=== PATIENT | female | born 1940 | race Caucasian/White ===

== ENCOUNTER 2017-01-30 08:49 | Day surgery (SDC) | payer MEDICARE, OTHER ==
[2017-01-30] VITALS (8 sets, daily range): BP systolic 122–150; BP diastolic 66–75; PULSE 69–85; RESP 16–18; TEMP 97.6–97.8; O2SAT 94–97
[~2017-01-30] VITALS: Ht 160 cm; Wt 53.0 kg
[~2017-01-30 08:49] MED LIST: ALPR0.5T3 PO; DOXY50 OR; METO25 PO; OMEG1CAP53 PO; OMEP20CA5 PO; PHEN12.5 PR; SIMV20 PO; SYNT25TA PO; TAMB50TA2 PO; ULTR50TA PO; VITA500S3 PO; [UNRECOGNIZED DRUG - REMARK]
[2017-01-30] MEDS ORDERED: SODIUM CHLORIDE 2 ML FLUSH PRN IV FLUSH (09:15)
[2017-01-30] MEDS ORDERED: SODIUM CHLOR 0.9% 1000 ML IV SCH (09:15)
[2017-01-30] MEDS ORDERED: LEVO75TA3 PO (09:22)
[2017-01-30] MEDS ORDERED: VITA500S3 SL (09:22)
[2017-01-30] MEDS ORDERED: ASPI81CH37 CHEW (09:22)
[2017-01-30] MEDS ORDERED: VITA2000 PO (09:22)
[2017-01-30] MEDS ORDERED: METO25TA3 PO (09:22)
[2017-01-30] MEDS ORDERED: TRAM50TA PO (09:22)
[2017-01-30] MEDS ORDERED: ADVA115A INH (09:22)
[2017-01-30] MEDS ORDERED: BUTATAB6 PO (09:22)
[2017-01-30] MEDS ORDERED: LORA1TAB12 PO (09:22)
[2017-01-30] MEDS ORDERED: ZOFR4TAB PO (09:22)
[2017-01-30] MEDS ORDERED: ALBU1AER5 INH (09:22)
[2017-01-30] MEDS ORDERED: FLEC1TAB8 PO (09:22)
[2017-01-30] MEDS ORDERED: OMEP40CA2 PO (09:22)
[2017-01-30 10:15] LABS: INTERNATIONAL NORMALIZED RATIO 0.9 RATIO; PROTHROMBIN TIME - PATIENT 10.1 SEC (9.8-11.6)
[2017-01-30 10:18] LABS: APTT (PATIENT) 25.2 SEC (24.3-30.1)
[2017-01-30] MEDS ORDERED: LIDOCAINE HCL 1% 20 ML VIAL ONE (10:33)
[2017-01-30] MEDS ORDERED: fentaNYL CITRATE 250 MCG/5 ML AMP ONE (10:43)
[2017-01-30] MEDS ORDERED: MIDAZOLAM HCL 2 MG/2 ML VIAL ONE (10:43)
--- NOTE | 2017-01-30 11:24 | PD.RAD ---
Post CT Procedure Prog Note Pre Procedure Diagnosis: (1) Lung cancer Post Procedure Diagnosis: (1) Lung cancer Procedure Date: Jan 30, 2017 Supervising Radiologist: Nathanael Joyce Anesthesia: Conscious Sedation Plan of Activity Patient to Unit: [facility] Patient Condition: Good Additional Comments: rul lung mass bx. two 20 guage See PACS Report for procedural detail/treatment Nathanael Joyce MD Jan 30, 2017 11:24
[2017-01-30] MEDS ORDERED: oxyCODONE/ACETAMINOPHEN 5 MG/325 MG TAB PO PRN (11:30)
--- NOTE | 2017-01-30 13:47 | RADRPT ---
EXAM DATE/TIME: 01/30/2017 10:58 [facility] COMPARISON: CT NEEDLE BIOPSY LUNG, RIGHT, November 26, 2013, 11:58. INDICATIONS : Right lung mass. SEDATION TIME: 30 minutes BIOPSY SITE: Right MEDICATION(S): 1.) 3 mg midazolam (Versed) IV 2.) 175 mcg fentanyl (Sublimaze) IV DEVICE(S): 1.) 20 gauge Temno core biopsy needle MEDICAL HISTORY : Diabetes mellitus type 2. Cardiovascular disease. Squamous cell carcinoma SURGICAL HISTORY : None. ENCOUNTER: Initial ACUITY: 1 day PAIN SCORE: 0/10 LOCATION: Right chest A total of two core specimen(s) were obtained and sent to the laboratory for pathologic evaluation. PROCEDURE: 1. CT guided lung biopsy. 2. Conscious sedation with continuous EKG and oximetry monitoring. 3. EKG and oximetry remained stable throughout the procedure. Prior to the procedure informed consent was obtained. Any appropriate prior imaging studies were rev iewed. Using automated exposure control and adjustment of the mA and/or kV according to patient size, radiation dose was kept as low as reasonably achievable to obtain optimal diagnostic quality images. DICOM format image data is available electronically for review and comparison. The site was prepped in a sterile fashion. Full sterile technique was used, including cap, mask, dale rile gloves and gown and a large sterile sheet. Hand hygiene and 2% chlorhexidine and/or betadine/al cohol prep was utilized per protocol for cutaneous antisepsis. The skin and subcutaneous tissues wer e infiltrated with local anesthetic solution. With CT guidance the previously identified target was localized. Biopsy was performed using the presc ribed needle as above. Adequate hemostasis was obtained with compression at the puncture site. Follow-up CT scan reveals no pneumothorax. Conscious sedation was performed with the prescribed dosages and duration as above in the presence of an independent trained radiology nurse to assist in the monitoring of the patient. EKG and oximetry remained stable throughout the procedure. The patient tolerated the procedure well and there were no complications. The patient was sent to Radiology Outpatient Unit in stable condition. CONCLUSION: Uncomplicated CT guided biopsy. Nathanael Joyce MD on January 30, 2017 at 13:43 Board Certified Radiologist. This report was verified electronically.
--- NOTE | 2017-01-30 14:46 | RADRPT ---
EXAM DATE/TIME: 01/30/2017 13:42 [facility] COMPARISON: CHEST EXPIRATION ONLY, June 24, 2014, 11:28. INDICATIONS : Post right lung biopsy. MEDICAL HISTORY : Diabetes mellitus type II. Cardiovascular disease. Squamous cell carcinoma SURGICAL HISTORY : infusaport ENCOUNTER: Subsequent ACUITY: 1 day PAIN SCORE: 0/10 LOCATION: Right chest FINDINGS: A single frontal expiratory view of the chest was performed. There is a stable right IJ [id number] . Postsurgical features in the right lung. No significant pneumothorax following right upper lobe jasson g mass biopsy. Biopsy opacity right upper lobe peripherally is noted. Additional pulmonary masses not ed on recent PET/CT not as well-demonstrated. The cardio-mediastinal contours and bronchopulmonary markings are unremarkable for an expiratory exam . Osseous structures are intact. CONCLUSION: 1. No significant pneumothorax status post right upper lobe lung mass biopsy. Nathanael Joyce MD on January 30, 2017 at 14:17 Board Certified Radiologist. This report was verified electronically.
[2017-01-30] MEDS ORDERED: SODIUM CHLORIDE 2 ML FLUSH BID IV FLUSH SCH (21:00)
== END 2017-01-30 15:38 | disposition home or self-care (01) ==
LOC: HRAD 08:49 → HRIP 08:50 → HRAD 15:38
PROVIDERS: ATTEND Internal Medicine Hematology
DX: C34.11 Malignant neoplasm of upper lobe, right bronchus or lung (principal); I25.10 Atherosclerotic heart disease of native coronary artery without angina pectoris; E11.9 Type 2 diabetes mellitus without complications; I10 Essential (primary) hypertension; Z01.818 Encounter for other preprocedural examination
CPT/HCPCS: 32405; 71010; 77012; 81210; 81235; 85610; 85730; 88305; 88341; 88342; 88360; 88377; 88381; J2250; J3010